=== PATIENT | male | born 1955 ===

== ENCOUNTER 2017-03-02 05:41 | Inpatient (IN) | payer OTHER ==
[~2017-03-02] VITALS: Ht 168.9 cm; Wt 90.7 kg
[2017-03-02] VITALS (15 sets, daily range): BP systolic 151–175; BP diastolic 89–116
[2017-03-02] MEDS ORDERED: Surgicel 4in x 8in TOPIC ONE (06:34)
[2017-03-02] MEDS ORDERED: Thrombin 5000 units TOPIC ONE (06:34)
[2017-03-02] MEDS ORDERED: Lidocaine 1% 10mg/ml/Epi 0.005mg/ml 30ml vial INJ ONE (06:35)
[2017-03-02] MEDS ORDERED: Heparin 5000 units/ml inj ONE (06:35)
[2017-03-02] MEDS ORDERED: Bacitracin 50000 Units Vial ONE (06:35)
[2017-03-02] MEDS ORDERED: Vancomycin 1gm inj IVPB ONE (06:35)
[2017-03-02] MEDS ORDERED: Bupivacaine 0.5% Inj 30 ml vial INJ ONE (06:35)
[2017-03-02] MEDS ORDERED: LR 1000ml ONE (07:00)
[2017-03-02] MEDS ORDERED: Sterile Water Irrig 1000ml IRRIG ONE (07:00)
[2017-03-02] MEDS ORDERED: Dexamethasone 20mg/5ml IVP ONE (07:00)
[2017-03-02] MEDS ORDERED: Tylenol #3 tab (300mg/30mg) ORAL PRN (07:00)
[2017-03-02] MEDS ORDERED: Zemuron 50mg/5ml Inj IV ONE (07:00)
[2017-03-02] MEDS ORDERED: NS Irrig 1000ml ONE (07:00)
[2017-03-02] MEDS ORDERED: Labetalol 5mg/ml 20ml vial IV ONE (07:00)
[2017-03-02] MEDS ORDERED: Sodium Chloride 10ml vial INJ ONE (07:00)
[2017-03-02] MEDS ORDERED: Glycopyrrolate 0.2mg/ml 1ml Vial ONE (07:00)
[2017-03-02] MEDS ORDERED: NS 500ML IV ONE (07:00)
[2017-03-02] MEDS ORDERED: traMADol 50mg tab ORAL PRN (07:00)
[2017-03-02] MEDS ORDERED: Propofol 1,000mg/ 100ml btl IV ONE (07:00)
[2017-03-02] MEDS ORDERED: Neostigmine 1mg/ml 10ml Inj ONE (07:00)
[2017-03-02] MEDS ORDERED: fentaNYL 100 mcg/2 mL IV ONE (07:00)
[2017-03-02] MEDS ORDERED: ceFAZolin 1gm/50ml Premix 50 ML IV ONE (07:00)
[2017-03-02] MEDS ORDERED: Lidocaine 1% MPF 10mg/ml 5ml ONE (07:00)
[2017-03-02] MEDS ORDERED: TAMSULOSIN HCL0.4 MG ORAL (07:17)
[2017-03-02] MEDS ORDERED: HYDROCHLOROTHIA25 MG ORAL (07:17)
[2017-03-02] MEDS ORDERED: GLIMEPIRIDE1 MG ORAL (07:17)
[2017-03-02] MEDS ORDERED: PLAVIX75 MG ORAL (07:17)
[2017-03-02] MEDS ORDERED: LISINOPRIL20 MG ORAL (07:17)
[2017-03-02] MEDS ORDERED: METFORMIN HCL1000 M1 ORAL (07:17)
--- NOTE | 2017-03-02 07:20 | Pre-Procedure Note/Attestation ---
Pre-Procedure Note/Attestation Complete Prior to Procedure Planned Procedure: not applicable Procedure Narrative: L5-S1: anterior interbody reconstruction, internal fixation, SSEP, Xray Indications for Procedure Pre-Operative Diagnosis: Post trauma L5-S1 instability, back pain Attestation I attest that I discussed the nature of the procedure; its benefits; risks and complications; and alternatives (and the risks and benefits of such alternatives ), prior to the procedure, with the patient (or the patient's legal client account representative). I attest that, if there was a reasonable possibility of needing a blood transfusion, the patient (or the patient's legal client account representative) was given the [place] [facility] [employer] [facility] standardized written summary, pursuant to the [place] Blood Safety Act ([place] Health and Safety Code # 1645, as amended). I attest that I re-evaluated the patient just prior to the surgery and that there has been no change in the patient's H&P, except as documented below: ОЛЬГА CURRAN Mar 02, 2017 07:20
[2017-03-02] MEDS ORDERED: LR 1000ml 1,000 ML IVLG SCH (07:29)
[2017-03-02] MEDS ORDERED: fentaNYL 100 mcg/2 mL IV PRN (07:30)
[2017-03-02] MEDS ORDERED: Meperidine 25mg/0.5ml Inj (FOR RIGORS ONLY) IV PRN (07:30)
[2017-03-02] MEDS ORDERED: Hydromorphone 0.5mg/0.5ml inj IVP PRN ×2 (07:30→13:15)
[2017-03-02] MEDS ORDERED: Ketorolac 30mg Inj IV PRN (07:30)
[2017-03-02] MEDS ORDERED: Metoclopramide 10mg/2ml Inj IVP PRN (07:30)
[2017-03-02] MEDS ORDERED: DiphenhydrAMINE 50mg/ml Inj IVP PRN (07:30)
[2017-03-02] MEDS ORDERED: LORazepam Inj 2mg/ml 1ml IV PRN (07:30)
[2017-03-02] MEDS ORDERED: Norco 7.5mg/325mg tab ORAL PRN (07:30)
[2017-03-02] MEDS ORDERED: Ketorolac 60mg Inj IV PRN (07:30)
[2017-03-02] MEDS ORDERED: Atropine Inj 1mg/10ml Syr IV PRN (07:30)
[2017-03-02] MEDS ORDERED: Midazolam 2mg/2ml Inj IVP PRN (07:30)
[2017-03-02] MEDS ORDERED: Norco 5mg/325mg tab ORAL PRN (07:30)
[2017-03-02] MEDS ORDERED: oxyCODONE HCL/Acetaminophen 5/325mg ORAL PRN (07:30)
--- NOTE | 2017-03-02 07:30 | Anethesia Preoperative Eval ---
Anesthesia Pre-op PMH/ROS General Date of Evaluation: Mar 02, 2017 Time of Evaluation: 07:19 Anesthesiologist: Bari ASA Score: ASA 3 Mallampati Score Class I : Soft palate, uvula, fauces, pillars visible Class II: Soft palate, uvula, fauces visible Class III: Soft palate, base of uvula visible Class IV: Only hard plate visible Mallampati Classification: Class III Surgeon: Moris Diagnosis: Back Pain Surgical Procedure: ALIF L5-S1, Posteror Screws Anesthesia History: none Social History: current smoker Family History: no anesthesia problems Allergies: Coded Allergies: No Known Allergies (Unverified , 03/01/17) Medications: see eMAR Past Medical History Cardiovascular: Reports: HTN, CAD - [place], Stent X3 Pulmonary: Reports: COPD Gastrointestinal/Genitourinary: Reports: other - BPH Endocrine: Reports: DM Other: obesity - BMI 32 Anesthesia Pre-op Phys. Exam Physician Exam Last Vital Signs Date Time Temp Pulse Resp B/P (MAP) Pulse Ox O2 Delivery O2 Flow Rate FiO2 03/02/17 06:53 97.7 68 20 151/94 97 Room Air Constitutional: NAD Neurologic: CN 2-12 intact Cardiovascular: RRR Respiratory: CTA Gastrointestinal: S/NT/ND Airway Exam Mallampati Score: Class III MO: limited ROM: limited Teeth: intact Anesthesia Pre-op A/P Risk Assessment & Plan Assessment: ASA 3 Status Change Before Surgery: No Pre-Antibiotics Dru Grams Ancef IV Given Within 1 Hr of Incision: Yes Time Given: 07:46 Justino Candelaria MD Mar 02, 2017 07:30
--- NOTE | 2017-03-02 08:18 | Immediate Post-Op Evaluation ---
Immediate Post-Op Evalulation Immediate Post-Op Evalulation Procedure: ALIF L5-S1, Posteror Screws Date of Evaluation: Mar 02, 2017 Time of Evaluation: 12:03 IV Fluids: 1100 LR Blood Products: 0 Estimated Blood Loss: 50 Urinary Output: 100 Blood Pressure Systolic: 160 Blood Pressure Diastolic: 109 Pulse Rate: 81 Respiratory Rate: 16 O2 Sat by Pulse Oximetry: 100 Temperature (Fahrenheit): 97 Pain Score (1-10): 3 Nausea: No Vomiting: No Complications 0 Patient Status: awake, reacts, patent, extubated, none Hydration Status: adequate Dru Grams Ancef IV Given Within 1 Hr of Incision: Yes Time Given: 07:46 Justino Candelaria MD Mar 02, 2017 08:18
[2017-03-02] MEDS ORDERED: Acetaminophen (Non formulary) 100 ML IV ONE (08:30)
[2017-03-02] MEDS ORDERED: Naloxone 0.4mg/ml Inj IVP PRN (11:45)
--- NOTE | 2017-03-02 11:48 | Brief Operative Note ---
Immediate Post Operative Note Operative Note Pre-op Diagnosis: Post trauma L5-S1 instability, back pain Procedure: L5-S1, interbody fusion, instrumentation, internal fixation, xray, bmp, correction deformity, diabetic, body habitus posterior pedicle scrwe fixation L5, S1. facet fusion, xray ssep, local Post-op Diagnosis: same as pre-op Findings: consistent w/pre-op dx studies Surgeon: Litzy Lopez. Kindra Curran [employer] Machine Set Up Operator: kindra ERAZO Anesthesiologist: Bari Anesthesia: general Specimen: none Complications: none Condition: stable Fluids: see anesthesia Estimated Blood Loss: minimal Drains: none Implant(s) used?: Yes ОЛЬГА CURRAN Mar 02, 2017 11:48
[2017-03-02] MEDS ORDERED: HYDROmorphone 1mg/ml Carpuject SUBQ PRN ×2 (12:00→17:15)
--- NOTE | 2017-03-02 13:11 | Diagnostic Imaging Report ---
Indication: PAIN back pain, intraoperative Technique: Intraoperative digital images Comparison: None Findings: Intraoperative images demonstrate localizing needle anterior to what is presumably L5-S1 an AP projection, subsequent placement of a disc spacer at L5-S1, subsequent surgical tool projected at the posterior aspect of L5 and placement of posterior fusion hardware at L5-S1 Impression: Intraoperative imaging, as described
[2017-03-02] MEDS ORDERED: PCA HYDROmorphone 1mg/ml 30 ML IV PRN (13:30)
[2017-03-02] MEDS ORDERED: Rate Change PCA 1 Each MISC PRN (13:30)
[2017-03-02] MEDS ORDERED: oxyCODONE 5mg IR tab ORAL PRN (14:30)
[2017-03-02] MEDS ORDERED: Nitroglycerin 2% oint pkt TOPIC PRN (15:45)
[2017-03-02] MEDS: D5 1/2NS 1,000 ML IV SCH ×2 (15:47→22:34)
[2017-03-02] MEDS: ceFAZolin sod 1 GM in D5W 55 ML IV SCH ×2 (15:47→23:38)
[2017-03-02] MEDS: Lisinopril 10mg tab ORAL SCH (16:42)
[2017-03-02] MEDS: NovoLOG Insulin Flexpen SUBQ SCH ×2 (17:28→20:37)
[2017-03-02] MEDS: Pericolace tab ORAL SCH (17:30)
[2017-03-02] MEDS ORDERED: Milk of Magnesia 30ml Ud ORAL PRN (17:30)
[2017-03-02] MEDS: PCA shift volume MISC SCH (19:00)
[2017-03-02] MEDS: Tamsulosin 0.4mg cap ORAL SCH (20:36)
[2017-03-02] MEDS ORDERED: Tamsulosin 0.4mg cap ORAL SCH (21:00)
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
[2017-03-03 04:00] VITALS: BP 127/75
[2017-03-03] MEDS: D5 1/2NS 1,000 ML IV SCH ×3 (04:56→22:07)
[2017-03-03] MEDS: NovoLOG Insulin Flexpen SUBQ SCH ×4 (06:21→20:41)
[2017-03-03] MEDS: ceFAZolin sod 1 GM in D5W 55 ML IV SCH (06:28)
[2017-03-03] MEDS: PCA shift volume MISC SCH ×2 (07:22→19:12)
[2017-03-03] MEDS: Hydromorphone 0.5mg/0.5ml inj SUBQ PRN ×5 (07:24→22:14)
[2017-03-03 08:00] VITALS: BP 120/79
[2017-03-03] MEDS ORDERED: Docusate 100mg cap ORAL SCH (09:00)
[2017-03-03] MEDS: metFORMIN 500mg tab ORAL SCH ×2 (09:22→20:40)
[2017-03-03] MEDS: Pericolace tab ORAL SCH ×2 (09:22→17:10)
[2017-03-03] MEDS: Lisinopril 10mg tab ORAL SCH (09:23)
--- NOTE | 2017-03-03 10:46 | 48 Hour Post Anesthesia Eval ---
Post Anesthesia Evaluation Procedure: ALIF L5-S1, Posteror Screws Date of Evaluation: Mar 03, 2017 Time of Evaluation: 10:46 Blood Pressure Systolic: 124 0: 79 Pulse Rate: 88 Respiratory Rate: 14 Temperature (Fahrenheit): 97.5 O2 Sat by Pulse Oximetry: 100 Airway: patent Nausea: No Vomiting: No Pain Intensity: 3 Hydration Status: adequate Cardiopulmonary Status: stable Mental Status/LOC: patient returned to baseline Follow-up Care/Observations: per surgery team Post-Anesthesia Complications: none Follow-up care needed: N/A VEE UNDERWOOD CRNA Mar 03, 2017 10:46
[2017-03-03 12:00] VITALS: BP 150/94
[2017-03-03] MEDS ORDERED: Tubing IV Secondary IV ONE (14:16)
[2017-03-03] MEDS ORDERED: D5 1/2NS 1000ml IV ONE (14:16)
--- NOTE | 2017-03-03 14:34 | Cardiology Progress Note ---
Assessment/Plan Problem List: (1) Type II diabetes mellitus (2) Hypertension (3) CAD (coronary artery disease), [place] coronary artery Status: stable, unchanged Status Narrative Pt s/p lumbar spine surgery - post op d1 DM - on metformin as outpt, now NPO HTN CAD w/ stent placement - most recent 07/2016 Assessment/Plan Check FS glucose and give ss insulin as needed. IV fluids while pt npo Restart antiplt agents post -stent when safe from surgical standpoint. Subjective Subjective Mr. Triplett c/o back pain. No CP or dyspnea Objective Last 24 Hour Vital Signs Date Time Temp Pulse Resp B/P (MAP) Pulse Ox O2 Delivery O2 Flow Rate FiO2 03/03/17 12:08 97.5 03/03/17 12:00 97.7 101 22 150/94 92 Room Air 03/03/17 10:46 88 14 100 03/03/17 09:23 120/79 03/03/17 08:00 97.4 102 24 120/79 96 Room Air 03/03/17 08:00 18 03/03/17 04:00 18 03/03/17 04:00 98.1 88 18 127/75 99 Room Air 03/03/17 00:00 19 03/02/17 20:00 97.4 88 16 161/89 97 Room Air 03/02/17 20:00 18 03/02/17 18:35 20 03/02/17 18:00 98.1 103 16 154/93 97 Room Air 03/02/17 16:42 152/99 03/02/17 16:00 20 03/02/17 14:35 18 General Appearance: WD/WN, no apparent distress, alert EENT: PERRL/EOMI Neck: non-tender, supple, no JVD Rhythm: NSR Cardiovascular: normal peripheral pulses, normal rate, no gallop/murmur Respiratory/Chest: lungs clear Abdomen: non tender, soft, hypoactive bowel sounds Intake and Output 03/03/17 03/04/17 19:00 07:00 Intake Total 125 ml Output Total 300 ml Balance -175 ml Intake IV Total 125 ml Output Urine Total 300 ml # Voids 1 MELYSSA NOLAN Mar 03, 2017 14:34
[2017-03-03 16:00] VITALS: BP 155/79
[2017-03-03] MEDS ORDERED: PCA HYDROmorphone 1mg/ml 30 ML IV PRN ×2 (16:00→18:00)
[2017-03-03] MEDS ORDERED: Rate Change PCA 1 Each MISC PRN (16:00)
[2017-03-03] MEDS: oxyCODONE 5mg IR tab ORAL PRN (16:02)
[2017-03-03] MEDS: PCA HYDROmorphone 1mg/ml 30 ML IV PRN (18:06)
[2017-03-03 20:00] VITALS: BP 153/80
[2017-03-03] MEDS: Tamsulosin 0.4mg cap ORAL SCH (20:40)
--- NOTE | 2017-03-03 21:30 | Progress Note ---
DATE: 03/03/2017 ACUTE PAIN MANAGEMENT PHYSICIAN PROGRESS NOTE Medications: Medication administration record reviewed. Medications include Flomax, Dorcas-Colace, Protonix, oxycodone, Zofran, sublingual nitroglycerin, Narcan, Dilaudid BI DEVELOPER, Glucophage, and Zestril. Diabetic medications including sliding scale insulin, [place], Colace, Benadryl, Cepacol, Soma, Xanax, Mylanta, and Tylenol. LABORATORY STUDIES: No interval laboratory studies. OBJECTIVE: Vital Signs: Blood pressure 127/75, oxygen saturation 99% on room air, afebrile, pulse 88, and respirations 18. I spent over 60 minutes in consultation today. I had multiple discussions with multiple nurses including BRYNN Shields, BRYNN Flanagan, and BRYNN Pat. Dr. Roach has also been consulting on the patient whom he knows well from his preoperative visit. The patient has been ambulating extremely well. The patient is a rather intolerant patient, but is doing his best to cooperate with the staff. The patient has been insistent on ambulating outside the hospital, presumably for tobacco breaks. We did strongly recommend the patient not to smoke. However, the patient does have a history of leaving hospitals repeatedly against medical advice including his recent hospitalizations for cardiac stenting procedures. Because of this extensive lumbar spine surgery, we have tried to tolerate the patient's erratic behaviors and intolerances so that we can continue to monitor his status after his lumbar spine surgery. The patient did state that he may have passed positive flatus once, but has not been having further flatus episodes. He does state that he is burping and he does have bowel sounds. Per standard protocol, I agree with Dr. Subramanian to continue the patient NPO except for medications and ice chips for now. I believe the patient may be sneaking in cups of coffee when he goes for walks, which are chaperoned by security. Again, the nursing staff are doing our best to maintain this patient in the hospital so we can monitor and treat him after his extensive lumbar spine surgery, before the patient irrationally and unrecommendably leave the hospital against medical advice. This morning when I saw the patient, he seemed rather agreeable and apologize for being uncooperative. He admits to being extremely noncompliant with his multiple medications recommended for home usage preoperatively including medicines for diabetes, hypertension, and coronary artery disease including his recent stents. The patient does state that he has had problems with prostate enlargement. He currently has a Pandey catheter in place. Flomax has been restarted and was given last night. I will defer to Dr. Subramanian for when to remove the Pandey catheter per his recommended protocol. The patient shows no signs of overt sedation using the BI DEVELOPER Dilaudid unit. He is asking for higher doses and I have asked the nurse to trial the patient with subcutaneous Dilaudid injections, which I ordered at a dosing of 1 mg every 3 hours p.r.n. I also have oral Dilaudid and oral oxycodone pills as transitions off of parenteral narcotics. He denies any heartburn, chest pain, or shortness of breath. Dr. Roach is managing the patient's multiple medical issues including coronary artery disease, diabetes, and hypertension. I have made available dose of Xanax for panic attacks and Soma remains available as an antispasm agent. I did leave a prescription for Percocet for outpatient usage. I have reviewed the patient's medication list in detail. Toño Cole M.D. DR: Kelly JOB#: [id number] CC:
[2017-03-04] VITALS (7 sets, daily range): BP systolic 106–172; BP diastolic 62–101
[2017-03-04] MEDS: oxyCODONE 5mg IR tab ORAL PRN ×3 (03:47→21:00)
[2017-03-04] MEDS: D5 1/2NS 1,000 ML IV SCH ×3 (05:11→22:30)
[2017-03-04] MEDS: Hydromorphone 0.5mg/0.5ml inj SUBQ PRN ×3 (05:25→23:48)
[2017-03-04] MEDS: NovoLOG Insulin Flexpen SUBQ SCH ×4 (06:04→21:01)
[2017-03-04] MEDS: PCA shift volume MISC SCH (07:00)
[2017-03-04 08:03] LABS: BASOPHILS % (AUTO) 0.6 % (0.0-2.0); EOSINOPHILS % (AUTO) 0.1 % (0.0-3.0); LYMPHOCYTES % (AUTO) 16.7 % (20.0-45.0); MEAN CORPUSCULAR HEMOGLOBIN 27.8 PG (27.0-31.0); MEAN CORPUSCULAR HGB CONC 33.5 G/DL (32.0-36.0); MEAN CORPUSCULAR VOLUME 83 FL (80-99); MEAN PLATELET VOLUME 8.3 FL (6.5-10.1); MONOCYTES % (AUTO) 9.8 % (1.0-10.0); NEUTROPHILS % (AUTO) 72.8 % (45.0-75.0); PLATELET COUNT 201 K/UL (150-450); RED BLOOD COUNT 5.07 M/UL (4.70-6.10); WHITE BLOOD COUNT 16.6 K/UL (4.8-10.8)
[2017-03-04 08:43] LABS: ANION GAP 11 (5-15); CALCIUM 8.8 mg/dL (8.6-10.2); CARBON DIOXIDE 28 mEQ/L (20-30); CHLORIDE 98 mEQ/L (98-107); GLOMERULAR FILTRATION RATE > 60 mL/min (>60); HEMOLYSIS 1; POTASSIUM 3.7 mEQ/L (3.4-4.9); SODIUM 137 mEQ/L (135-145)
[2017-03-04] MEDS: metFORMIN 500mg tab ORAL SCH ×2 (09:06→20:59)
[2017-03-04] MEDS: Lisinopril 10mg tab ORAL SCH (09:06)
[2017-03-04] MEDS: Pericolace tab ORAL SCH ×2 (09:07→16:55)
[2017-03-04] MEDS: ALPRAZolam 0.5mg tab ORAL PRN ×2 (10:30→18:21)
[2017-03-04] MEDS: Norco 10mg/325mg tab ORAL PRN ×2 (10:30→22:47)
--- NOTE | 2017-03-04 12:15 | Operative Note - Dictated ---
DATE OF OPERATION: 03/02/2017 PRIMARY SURGEON: Naveen Subramanian, Ph.D., M.D. Admitting/Preoperative Diagnosis: Posttraumatic lumbar spine instability, posttraumatic back pain L5-S1. Postoperative Diagnosis: Posttraumatic lumbar spine instability, posttraumatic back pain L5-S1. Operative Procedure: Anterior exposure, Dr. Blue, Dr. Subramanian assist. Please see separate report for exposure and closure, Vascular Surgery. L5-S1 interbody reconstruction, fusion, correction of deformity, internal fixation, placement of bone morphogenic protein/fusion, intraoperative fluoroscopy interpreted by surgeon, SSEP monitoring. The patient's body habitus greater than 95 percentile for height. Correction of deformity from collapse to lordosis. Internal fixation posterior, Dr. Naveen Subramanian, primary, Alyssia Read, CASTRO assist, pedicle screw instrumentation, L5, S1. SSEP monitoring, intraoperative fluoroscopy interpreted by surgeon, fusion bilateral, facet fusion, autograft L5-S1. Local anesthetic applied by surgeon. A 1 gram vancomycin powder applied by surgeon. DRAINS: None. POSTOPERATIVE CONDITION: Good/stable. Description of Procedure: The patient was brought to the operating room and in supine position, general anesthesia with intubation was induced. After appropriate positioning, anterior abdomen was sterilely prepped and draped free in usual sterile fashion. Please see separate report for exposure and closure, Dr. Blue, Vascular Surgery. Identification of midline and correct level with needle placement in the disc space was obtained in the AP and lateral planes with fluoroscopic guidance interpreted by surgeon and marked appropriately. Needle removed. Annulotomy performed followed with diskectomy too, but not through the posterior longitudinal ligament. Denuding of the end plates to subchondral bone, both inferior L5 and superior S1. Interpositional grafting with correction to lordosis from collapse with Aero-L prosthesis. Internal fixation. Bone morphogenic protein mediated fusion placed. SSEP monitoring stable at all times. Fluoroscopic imaging excellent at all times. After appropriate closure and placement of anterior bandage under sterile condition, the patient was carefully turned from the supine to the prone position on to operating table. Prior operating table removed. All instruments removed. All new sterile instruments supplied. Lumbodorsal spine was sterilely prepped. Under sterile conditions, spinal needles were placed percutaneously and the subcutaneous tissue only 03:20 the patient's body habitus greater than 95th percentile for height. Diabetic. 03:27. The spinal needles were placed into the subcutaneous tissue and cross-table fluoroscopic imaging was obtained under sterile conditions. Determination of correct incision and placement undertaken. Levels marked sterilely. [place] removed. Back re-sterilely prepped and draped free in usual sterile fashion. A longitudinal midline incision was sharply placed 03:50 dermis and epidermis. Electrocautery dissection was carried through subcutaneous tissue. Lumbodorsal fascia was incised right and left of midline over the appropriate intervals. Pedicle screw instrumentation was undertaken bilaterally L4-L5, bilaterally S1 pedicles with fluoroscopic guidance and use of anatomy. Screw placement was with posterior cortical drilling with fluoroscopic guidance. Pedicle probing with determination of length of the screw. Tapping followed with physical ball tip probe examination of cortical faye for integrity. SSEP monitoring. Appropriate screw placement with fluoroscopic guidance. Negative EMGs. After all screws were placed, stimulation was undertaken with 5 milliamps, negative bilaterally at L5 and S1. Recorded. Wound was irrigated with antibiotic-containing saline. Facet fusions were undertaken bilaterally L5-S1. FloSeal applied followed with 1 gram vancomycin powder. This was after interconnecting rods were placed and counter torqued into position with excellent fixation. Fluoroscopic imaging was utilized with hard x-ray obtained. Sequential reapproximation of the lumbodorsal fascia, subcutaneous tissue, dermis, and epidermis. Surgical strips applied. Local anesthetic 1% lidocaine with epinephrine bilateral lateral aspects of the incision, dermal/subcutaneous interval. Sterile bands were applied and maintained in place with tape. The patient was carefully turned from the prone to the supine position on the transport bed where he was awakened, extubated in the operating room, and transported to postoperative recovery in good and stable condition. Naveen Subramanian M.D. DR: FRANKLIN JOB#: [id number] CC:
--- NOTE | 2017-03-04 13:09 | Cardiology Progress Note ---
Assessment/Plan Problem List: (1) Type II diabetes mellitus (2) Hypertension (3) CAD (coronary artery disease), [place] coronary artery Status: stable, progressing Status Narrative Pt s/p lumbar spine surgery - post op d2. On BELT LOOP MACHINE OPERATOR dilaudid DM - on metformin as outpt. Glucoses elevated HTN - elevated SBP to 150s -170s CAD w/ stent placement - most recent 07/2016 Assessment/Plan Pt remains NPO x meds. Pain management per surgery. will increase lisinopril to 20 mg/d for better BP control. Restart antiplt agents - asa, plavix , post -stent when safe from surgical standpoint. Subjective ROS Limited/Unobtainable: No Subjective Mr. Triplett is sedated, on BELT LOOP MACHINE OPERATOR dilaudid Objective Last 24 Hour Vital Signs Date Time Temp Pulse Resp B/P (MAP) Pulse Ox O2 Delivery O2 Flow Rate FiO2 03/04/17 12:53 18 03/04/17 11:29 98.0 03/04/17 10:43 18 03/04/17 09:06 150/89 03/04/17 09:04 98.0 100 20 150/89 98 Room Air 03/04/17 08:00 98.0 102 20 172/101 98 Room Air 03/04/17 04:00 18 03/04/17 04:00 99.3 70 18 141/79 99 Room Air 03/04/17 00:00 18 03/03/17 20:00 97.7 65 18 153/80 98 Room Air 03/03/17 19:58 18 03/03/17 19:28 18 03/03/17 19:17 98.7 03/03/17 18:58 18 03/03/17 18:50 97 Room Air 03/03/17 18:43 18 03/03/17 18:36 98.7 03/03/17 18:28 18 03/03/17 18:13 18 03/03/17 18:06 18 03/03/17 16:00 98.7 82 21 155/79 97 Room Air General Appearance: WD/WN, no apparent distress, obese EENT: PERRL/EOMI Neck: no JVD Rhythm: NSR Cardiovascular: normal rate, regular rhythm, no gallop/murmur Respiratory/Chest: lungs clear Abdomen: soft, hypoactive bowel sounds, other - dry dressing midline. mild distension Extremities: no swelling Intake and Output 03/04/17 03/05/17 19:00 07:00 Intake Total 125 ml Balance 125 ml Intake IV Total 125 ml # Voids 1 Laboratory Tests Test 03/04/17 06:40 White Blood Count 16.6 K/UL (4.8-10.8) H Red Blood Count 5.07 M/UL (4.70-6.10) Hemoglobin 14.1 G/DL (14.2-18.0) L Hematocrit 42.1 % (42.0-52.0) Mean Corpuscular Volume 83 FL (80-99) Mean Corpuscular Hemoglobin 27.8 PG (27.0-31.0) Mean Corpuscular Hemoglobin Concent 33.5 G/DL (32.0-36.0) Red Cell Distribution Width 12.0 % (11.6-14.8) Platelet Count 201 K/UL (150-450) Mean Platelet Volume 8.3 FL (6.5-10.1) Neutrophils (%) (Auto) 72.8 % (45.0-75.0) Lymphocytes (%) (Auto) 16.7 % (20.0-45.0) L Monocytes (%) (Auto) 9.8 % (1.0-10.0) Eosinophils (%) (Auto) 0.1 % (0.0-3.0) Basophils (%) (Auto) 0.6 % (0.0-2.0) Sodium Level 137 mEQ/L (135-145) Potassium Level 3.7 mEQ/L (3.4-4.9) Chloride Level 98 mEQ/L (98-107) Carbon Dioxide Level 28 mEQ/L (20-30) Anion Gap 11 (5-15) Blood Urea Nitrogen 20 mg/dL (7-23) Creatinine 1.0 mg/dL (0.7-1.2) Estimat Glomerular Filtration Rate > 60 mL/min (>60) Glucose Level 197 mg/dL (74-106) H Calcium Level 8.8 mg/dL (8.6-10.2) Microbiology Date/Time Source Procedure Growth Status 03/02/17 06:20 Nasal Nares MRSA Culture - Final NO METHICILLIN RESISTANT STAPH AUREUS... Complete MELYSSA NOLAN Mar 04, 2017 13:09
[2017-03-04] MEDS ORDERED: D5NS 1000ml IV ONE (15:07)
[2017-03-04] MEDS ORDERED: Magnesium Citrate Liq Btl ORAL ONE (18:00)
[2017-03-04] MEDS: PCA HYDROmorphone 1mg/ml 30 ML IV PRN (18:04)
[2017-03-04] MEDS ORDERED: PCA shift volume MISC SCH (19:00)
[2017-03-04] MEDS: Tamsulosin 0.4mg cap ORAL SCH (20:59)
--- NOTE | 2017-03-04 23:15 | Progress Note ---
DATE: 03/04/2017 ACUTE PAIN MANAGEMENT PHYSICIAN PROGRESS NOTE Medications: Medication administration record reviewed. Medications include Flomax, Colace, Protonix, oxycodone, Zofran, sublingual nitroglycerin, Narcan, Dilaudid, DEPOSITION OPERATOR, Glucophage, Zestril, Dilaudid, [place], Benadryl, Cepacol, Soma, Xanax, Mylanta, and Tylenol. Laboratory Data: Laboratory studies from this morning, 03/04/2017, shows white count 17, hematocrit 42, and platelets 201,000. Electrolytes are pending. OBJECTIVE: Vital Signs: Shows afebrile, pulse 70, respirations 18, blood pressure 141/79, and oxygen saturation 99% on room air. I saw the patient at the bedside with the nurse, BRYNN Purdy. I spent over 60 minutes in consultation. I discussed the case with the surgeon, Dr. Subramanian, in-detail. The Pandey catheter was removed and the patient has been voiding adequately. He will continue with the Flomax, which he is prescribed to take preoperatively, but the patient admits to being noncompliant. The patient still has not yet passed any flatus and has been a little bit more compliant restricting his oral intake, remains on IV fluids for adequate rehydration, and his vital signs are within normal limits with a pulse rate of 70. There are no nausea symptoms. The patient denies shortness of breath. The patient has been more cooperative with the nursing staff, who has been taking considerable time transporting the patient in a wheelchair downstairs, so as he can smoke cigarettes outdoors. We did encourage the patient to stop smoking cigarettes. The patient had a long discussion via telephone with surgeon, Dr. Subramanian, yesterday and the patient is trying to comply with the proposed plan to help the patient. The patient has a good recovery course. He already has an elevated white count. We will encourage continued and more aggressive usage of incentive spirometer. Ambulation is encouraged. We trialed the patient off of the DEPOSITION OPERATOR unit yesterday. The patient did not tolerate such and Dr. Subramanian had allowed to restart the DEPOSITION OPERATOR. I will trial him off the DEPOSITION OPERATOR at dinnertime tonight. We will cycle multiple p.r.n. pain medications, which include [place], subcutaneous Dilaudid, Soma, Xanax, and even oxycodone. We will try to wean off the DEPOSITION OPERATOR. We still await improvement in bowel function and flatus. The patient did ask for a Fleet enema. I explained to the patient that per Dr. Subramanian after this specific surgery, we prefer to wait for spontaneous improvement in bowel function and flatus since there is a considerable risk for postoperative ileus. Toño Cole M.D. DR: YAEL JOB#: [id number] CC:
[2017-03-05] VITALS: BP 136/75
[2017-03-05] MEDS: oxyCODONE 5mg IR tab ORAL PRN ×2 (02:21→09:31)
[2017-03-05 04:00] VITALS: BP 114/61
[2017-03-05] MEDS: D5 1/2NS 1,000 ML IV SCH (06:38)
[2017-03-05] MEDS: NovoLOG Insulin Flexpen SUBQ SCH (06:38)
[2017-03-05 08:00] VITALS: BP 143/91
[2017-03-05] MEDS ORDERED: Lisinopril 10mg tab ORAL SCH (09:00)
[2017-03-05] MEDS: metFORMIN 500mg tab ORAL SCH (09:30)
[2017-03-05 09:31] VITALS: BP 143/91
[2017-03-05] MEDS: Pericolace tab ORAL SCH (09:31)
--- NOTE | 2017-03-05 23:00 | Operative Note - Dictated ---
DATE OF OPERATION: 03/02/2017 VASCULAR SURGEON: Shahriar Blue M.D. SPINE SURGEON: Naveen Subramanian M.D. PREOPERATIVE DIAGNOSIS: Degenerative disk disease. POSTOPERATIVE DIAGNOSIS: Degenerative disk disease. Procedure Performed: Anterior retroperitoneal exposure of L5-S1 vertebral interspace. Indications: The patient is a very pleasant gentleman, who was seen in my office prior to surgery. He has been scheduled for anterior fusion at L5-S1. He has no history of prior anterior spine surgery and no history of deep venous thrombosis or bleeding complications were described. The patient was made aware of the risks of surgery including, vascular injury, possible need for blood transfusion, and deep venous thrombosis. Description Of Findings: A low vertical midline incision was used. Left retroperitoneal approach was used. There was no peritoneal or ureteral violation. There was no vascular injury. Exposure of L5-S1 was obtained by retraction of the left iliac vessels superiorly and laterally. Description of Procedure: The patient was taken to the operative room. General anesthesia was used. IV antibiotics were given. The patient's abdomen was prepped and draped. Appropriate time-out procedure was taken. A low vertical midline incision was made infraumbilically. The anterior fascia was incised longitudinally in the midline. A plane identified posterior to the left rectus abdominis and developed posterolaterally towards the patient's left. The retroperitoneal space was entered below the arcuate line. The peritoneum and ureter were mobilized towards the patient's right exposing the left common iliac vessels. Dissection was carried on the undersurface of left common iliac vein. Bipolar electrocautery was used to divide the left middle sacral artery and vein. This allowed retraction of the left iliac vessels superiorly and laterally and use of the Omni retractor to expose the anterior surface of the L5-S1. Fluoroscopy was used to confirm the appropriate level. Then, instrumentation and fusion was performed at L5-S1, dictated separately. Upon completion, the peritoneum and ureter were intact. Iliac vessels were intact. The anterior fascia was then closed using #1 PDS in a running fashion. The skin and subcutaneous tissue were closed using 3-0 Vicryl and 4-0 Monocryl in a running subcuticular closure technique. ESTIMATED BLOOD LOSS: Less than 50 mL. COMPLICATIONS: None. Shahriar Blue M.D. DR: JULIA JOB#: [id number] CC:
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
== END 2017-03-05 09:45 | disposition home or self-care (01) | DRG 460 ==
LOC: SDSOVERFLO 05:41 → 3E 13:30
PROC: 3E0U0GB Introduction of Recombinant Bone Morphogenetic Protein into Joints, Open Approach (ICD-10-PCS; principal; 2017-03-02 07:00)
PROC: 4A11X4G Monitoring of Peripheral Nervous Electrical Activity, Intraoperative, External Approach (ICD-10-PCS; principal; 2017-03-02 07:00)
PROC: 0SG00A0 Fusion of Lumbar Vertebral Joint with Interbody Fusion Device, Anterior Approach, Anterior Column, Open Approach (ICD-10-PCS; principal; 2017-03-02 07:00)
DX: M53.2X6 Spinal instabilities, lumbar region (principal); I10 Essential (primary) hypertension; M51.36 Other intervertebral disc degeneration, lumbar region; E11.9 Type 2 diabetes mellitus without complications; Z79.84 Long term (current) use of oral hypoglycemic drugs; I25.10 Atherosclerotic heart disease of native coronary artery without angina pectoris; Z95.5 Presence of coronary angioplasty implant and graft; Z98.1 Arthrodesis status; N40.0 Benign prostatic hyperplasia without lower urinary tract symptoms; E66.9 Obesity, unspecified; F41.9 Anxiety disorder, unspecified; Z72.0 Tobacco use; M40.47 Postural lordosis, lumbosacral region; Z79.02 Long term (current) use of antithrombotics/antiplatelets; Z91.14 Patient's other noncompliance with medication regimen; Z68.31 Body mass index [BMI] 31.0-31.9, adult
CPT/HCPCS: 36415; 72020; 76001; 80048; 82962; 85025; 86850; 86900; 86901; 87081; 94003; 94150; C9399; J1815; J2405; J2710